=== PATIENT | male | born 1970 | race Caucasian/White ===

== ENCOUNTER 2019-03-31 06:48 | Inpatient (IN) | payer OTHER, BC ==
[2019-03-29 17:37] VITALS: BMI 29.2
[2019-03-31] MEDS ORDERED: MIDAZOLAM HCL 2 MG/2 ML SINGLE DOSE VIAL ONE ×3 (07:21→10:39)
[2019-03-31] MEDS ORDERED: ROCURONIUM BROMIDE 50 MG/5 ML VIAL ONE (07:21)
[2019-03-31] MEDS ORDERED: SUCCINYLCHOLINE CHLORIDE 200 MG/10 ML VIAL ONE (07:21)
[2019-03-31] MEDS ORDERED: PROPOFOL 20 ML ONE ×37 (07:21→14:07)
[2019-03-31] MEDS ORDERED: fentaNYL CITRATE 250 MCG/5 ML VIAL ONE ×2 (07:21→10:07)
[2019-03-31] MEDS ORDERED: BENZOIN/ALOE VERA/STORAX/TOLU 58 ML BOTTLE ONE (07:25)
[2019-03-31] MEDS ORDERED: HEPARIN NA (PORCINE) 5,000 UNITS/ML 1ML VIAL ONE (07:25)
[2019-03-31] MEDS ORDERED: THROMBIN (RECOMBINANT) 5,000 UNIT VIAL TP ONE (07:25)
[2019-03-31] MEDS ORDERED: DESFLURANE GAS 240 ML BOTTLE IH ONE (07:41)
[2019-03-31] MEDS ORDERED: CEFAZOLIN 2 GM in DEXTROSE 5%-WATER - 50 ML IVPB ONE (07:45)
[2019-03-31] MEDS ORDERED: TRANEXAMIC ACID 1000 MG/10 ML VIAL IVPUSH ONE (07:45)
[2019-03-31] MEDS ORDERED: VANCOMYCIN 1,000 MG in DEXTROSE 5%-WATER - 250 ML IVPB ONE (07:45)
[2019-03-31] MEDS ORDERED: DEXAMETHASONE SOD PHOSPHATE 4 MG/1 ML VIAL ONE (09:29)
[2019-03-31] MEDS ORDERED: VANCOMYCIN 1,000 MG VIAL (RESTRICTED TO ID ONLY) ONE (09:29)
[2019-03-31] MEDS ORDERED: ONDANSETRON 4 MG/2 ML VIAL ONE (09:29)
[2019-03-31] MEDS ORDERED: TRANEXAMIC ACID 1000 MG/10 ML VIAL ONE ×2 (09:29→13:39)
[2019-03-31] MEDS ORDERED: HYDROmorphone HCL/PF 1 MG/ML AMP ONE ×2 (12:25→13:55)
[2019-03-31] MEDS ORDERED: ceFAZolin SODIUM 1 GM VIAL ONE (13:27)
--- NOTE | 2019-03-31 15:06 | OP ---
Operative Note - Note: Operative Date: 03/31/19 Pre-Operative Diagnosis: 1. C3-C6 cervical spondylotic myelopathy. 2. C3-C7 cervical spondylotic radiculopathy. 3. Cervical deformity (kyphosis). 4. Multi -level segmental instability cervical spine. 5. Weakness, fall risk. SEVERITY OF ILLNESS: 4. Operation: 1. C4, C5 corpectomies. 2. C3, C6 partial corpectomies. 3. C3-4, C4 -C5, C5-C6 anterior cervical discectomy. 4. C3-C6 biomechanical device. 5. C3- C6 anterior arthrodesis. 6. C3-C6 anterior instrumentation. 7. Bone autograft. 8. Bone allograft. 9. Microsurgical dissection Implants: Choice Spine [place] Cage: 50mm. Precision Spine Slimplicity Plate: 58mm. 4 x screws (12mm) Post-Operative Diagnosis: Same as Pre-op Surgeon: Hernandez Connor Threshing Department Supervisor: Trerence Connor Anesthesiologist/ELECTRIC DOLLY OPERATOR: Eddie Kaur Anesthesia: General Specimens Removed: C3-C4, C4-C5, C5-C6 discs Estimated Blood Loss (mls): 400 Drains & Tubes with Location: 1 x deep HemoVac Blood Volume Replaced (mls): 125 (Cell Saver) Fluid Volume Replaced (mls): 3,200 (Crystalloid) Operative Report Dictated: Yes
[2019-03-31] MEDS ORDERED: ALPRAZolam 1 MG TABLET PO PRN (15:07)
--- NOTE | 2019-03-31 15:07 | PN ---
Progress Note (short form) - Note Progress Note: 48M s/p C3-C6 anterior cervical decompression and instrumented fusion POD #0. -Airway observation: In case of emergency, remove anterior cervical spine dressing and pull out running suture; ok to cut suture if needed to decompress hematoma. -Maintain head of bed 45-60 degrees. -Pain medication: per anaesthesia team; oral meds (oxycodone preferred), no DUST CONTROL ENGINEER ; NO NSAID's. -DVT PPx: -Mechanical only: DINESH's, SCD's. -Post-op Ancef x 3 doses. -f/u AM labs. -Incentive spirometry. -PT/OT/Rehab, OOB. -WBAT B/L LE. -PWB B/L UE: 5lbs. -d/c Mccarthy catheter in PACU; f/u TOV (8 hours max). -Keep dressing clean & dry. -No heavy lifting (>5 lbs), bending or twisting x 6 months post op. -Start with soft diet; advance diet as tolerated. -B/L UE & LE NV checks. -Care per ICU & primary medical hospitalist teams. -Discharge planning: f/u [facility] [place] office 04/08/2019; call for appointment; . Hernandez Connor MD (Orthopaedic Surgery).
[2019-03-31] MEDS ORDERED: oxyCODONE HCL 5 MG TABLET PO PRN (15:08)
[2019-03-31] MEDS ORDERED: ONDANSETRON 4 MG/2 ML VIAL IVPUSH PRN (15:08)
[2019-03-31] MEDS ORDERED: NALOXONE HCL 0.4 MG/ML VIAL ONE (15:35)
[2019-03-31] MEDS: LACTATED RINGERS SOLUTION 1,000 ML IV SCH (17:00)
[2019-03-31] MEDS: ceFAZolin 2 GRAM PREMIX BAG IVPB SCH (18:36)
--- NOTE | 2019-03-31 19:32 | HP ---
Admitting History and Physical - Admission Chief Complaint: cervical pain. denies chest pain, nausea, vomiting, diarrhea History Source: Patient Limitations to Obtaining History: No Limitations - Past Medical History Cardiovascular: Yes: HTN, Hyperlipdemia - Smoking History Smoking history: Never smoked Have you smoked in the past 12 months: No - Alcohol/Substance Use Hx Alcohol Use: Yes (OCCASIONALLY) Home Medications - Allergies Allergies/Adverse Reactions: Allergies Allergy/AdvReac Type Severity Reaction Status Date / Time hydrocodone [From Vicodin] AdvReac Severe BAD Verified 03/29/19 17:04 ABDOMINAL PAIN - Home Medications Home Medications: Ambulatory Orders Alprazolam 1 mg PO QID PRN 03/29/19 Amlodipine Besylate [Norvasc -] 5 mg PO DAILY 03/29/19 Atorvastatin Ca [Lipitor] 20 mg PO DAILY 03/29/19 Cyclobenzaprine HCl 10 mg PO DAILY PRN 03/29/19 Fenofibrate Nanocrystallized [Fenofibrate] 145 mg PO DAILY 03/29/19 Lisinopril 10 mg PO DAILY 03/29/19 Metoprolol Succinate 50 mg PO DAILY 03/29/19 Tramadol HCl 50 mg PO BID PRN 03/29/19 Review of Systems - Review of Systems Constitutional: reports: No Symptoms Eyes: reports: No Symptoms HENT: reports: No Symptoms Neck: reports: Decreased ROM, Pain on Movement, Stiffness Respiratory: reports: No Symptoms Gastrointestinal: reports: No Symptoms Genitourinary: reports: No Symptoms Musculoskeletal: reports: No Symptoms Integumentary: reports: No Symptoms Neurological: reports: No Symptoms Endocrine: reports: No Symptoms Hematology/Lymphatic: reports: No Symptoms Psychiatric: reports: No Symptoms Pain Intensity: 8 Physical Examination Vital Signs: Vital Signs Temperature 97.9 F 03/31/19 17:30 Pulse Rate 97 H 03/31/19 17:30 Respiratory Rate 16 03/31/19 17:30 Blood Pressure 132/88 03/31/19 17:30 O2 Sat by Pulse Oximetry (%) 93 L 03/31/19 17:49 Constitutional: Yes: No Distress, Anxious Eyes: Yes: WNL HENT: Yes: WNL Neck: Yes: Decreased ROM, Rigid, Tenderness Cardiovascular: Yes: WNL Respiratory: Yes: WNL Gastrointestinal: Yes: WNL Renal/: Yes: WNL Musculoskeletal: Yes: WNL Extremities: Yes: WNL Edema: No Peripheral Pulses WNL: Yes Integumentary: Yes: WNL Wound/Incision: Yes: Clean/Dry, Well Approximated Neurological: Yes: WNL ...Motor Strength: WNL Psychiatric: Yes: WNL Assessment/Plan 48M s/p C3-C6 anterior cervical decompression and instrumented fusion POD #0. cont pain management. incentive spirometry. side effects of narcotics reviewed with pt on stool softeners to prevent opioid induced constipation -cont xanax for anxiety -ID: covered empirically with Ancef -HTN: on toprol XL, lisinopril, amlodipine -advance diet as tolerated -AM labs -PT/OT/OOB as tolerated. -assessment and plan discussed with pt and family at bedside meds reviewed possible DC home tomorrow if stable
[2019-03-31] MEDS ORDERED: DEXAMETHASONE SOD PHOSPHATE 10 MG/1 ML VIAL IVPUSH ONE (23:00)
[2019-04-01] MEDS: ceFAZolin 2 GRAM PREMIX BAG IVPB SCH ×2 (00:52→06:11)
[2019-04-01] MEDS: oxyCODONE HCL 5 MG TABLET PO PRN ×4 (07:43→18:40)
--- NOTE | 2019-04-01 08:54 | OP ---
DATE OF OPERATION: 03/31/2019 PRE-OPERATIVE DIAGNOSIS: 1. C3-C4, C4-C5, C5-C6 intervertebral disk disorder with associated spondylotic: A. Myelopathy. B. Radiculopathy. 2. Cervical spinal stenosis with neurogenic claudication. 3. Cervical kyphosis/deformity. 4. Axial segmental instability cervical spine. 5. Progressive neurological decline with gait imbalance/disorder, weakness, and fall risk. POST-OPERATIVE DIAGNOSIS: 1. C3-C4, C4-C5, C5-C6 intervertebral disk disorder with associated spondylotic: A. Myelopathy. B. Radiculopathy. 2. Cervical spinal stenosis with neurogenic claudication. 3. Cervical kyphosis/deformity. 4. Axial segmental instability cervical spine. 5. Progressive neurological decline with gait imbalance/disorder, weakness, and fall risk. SURGICAL PROCEDURE: 1. C3-C4, C4-C5, C5-C6 discectomies and arthrodesis (94305, 16300 x 2). 2. C4, C5 corpectomies. (47432, 85217). 3. C3, C6 partial corpectomies (52381 x 2). 3. Insertion of biomechanical device C3-C6 (78142). 4. C3-C6 anterior instrumentation (63776). 5. Bone autograft (07677). 6. Bone allograft (45323). 7. Microsurgical dissection (24561). FINDINGS: Significant expansion of theca observed after C3-C6 decompression. IMPLANTS: 1. Cage: Choice Spine [place] [id number]. 2. Plate: Precision Spine Simplicity 58mm. 3. Screws: 4 x 12x4mm. SURGEON: Hernandez Connor MD PHOTOFLASH POWDER MIXER: Terrence Connor MD ANESTHESIOLOGIST: Eddie Kaur MD ANESTHESIA: General endotracheal tube anesthesia. POSITION: Supine. INCISION: Right oblique anterior. ESTIMATED BLOOD LOSS: 400cc. TRANSFUSIONS: 125cc Cell Saver. INTRAVENOUS FLUID: 3.2L crystalloid. SPECIMENS: C3-C4, C4-5, C5-C6 disc. DRAINS: None. COMPLICATIONS: None. URINE OUTPUT: See anesthesia record. BACTERIOLOGY: None. CLOSURE: 2-0 Vicryl and 3-0 Biosyn absorbable suture. INDICATIONS: The patient was indicated for an anterior cervical decompression and instrumented fusion to prevent the progression of already worsening neurological decline. The patient was identified in the holding area by his armband. A long discussion was held with the patient in the presence of his family regarding the risks, benefits and alternatives of the above-named procedure. The risks include, but are not limited to: pain, bleeding, infection, damage to surrounding structures (including nerves, blood vessels, skin, ligaments, tendons, and bone), dysphagia, dysphonia, nerve palsy, weakness, limp, wound complications, pseudarthrosis, failure of fusion, failure of hardware/implants/ reduction, need for further surgery, blood clots, myocardial infarction, pulmonary embolism, cerebrovascular event, anesthesia complications, neurological injury, loss of function, and . Benefits as mentioned above. Alternatives include no surgery. All questions were answered. The patient and his family understood and agreed to the procedure. Informed consent was obtained, witnessed and verified by hospital nursing staff. The patients anterior neck was marked. The patient was then seen by the anesthesia and nursing staff and then taken to the operating room. PROCEDURE: The patient was brought into the operating room and transferred to the OR table , and secured with a safety strap. Consent and the operative site were again verified with the patient, the nursing team, the surgical team, and the anesthesiology team. Anesthesia, IV antibiotics, and TXA were then administered without complication. A time out was done, led by me the attending surgeon. An indwelling Mccarthy catheter was successfully inserted by the nursing team. The intra-operative neural monitoring team then set up for the case. Pre-positional baseline SSEP, MEP, & EEG readings were recorded. The patient was positioned in the supine position with arms tucked and placed under gentle traction using tape over her shoulders. All bony prominences were very well padded. A bump was placed beneath the scapulae to facilitate extension of the patients neck. A C-arm fluoroscopy unit was positioned perpendicularly to the table and maintained at the level of the head, except when needed. The intended surgical level was confirmed using fluoroscopy, and a deep neck crease in the lines of Merle at this level was targeted for incision. Intra-operative neural monitoring revealed no change between pre-positional and post-positional readings. The operative site was then prepped and in the standard sterile fashion using betadine prep and scrub, wiped off with alcohol, Duraprep applied, and then free draped. Pre-operative imaging was available for intra-operative evaluation. Time-out was again done, and the case began. A standard, Gerber-Soriano approach to the cervical spine was utilized. An oblique anterior incision was made on the right side of the patients neck in the lines of Merle in standard fashion. Dissection was carried through the investing layer of fascia and finger palpation was used to create a plane lateral to the strap muscles between the carotid sheath and the viscera. Next, the esophagus and trachea were visualized as was the carotid sheath. Hand-held retractors were used to retract these structures safely out of the way, allowing direct access to the anterior cervical spine. The prevertebral fascia overlying the anterior cervical spine was then split using peanut swabs. An 18- gauge spinal needle was bent and used to localize the indicated surgical level under fluoroscopy. Next, the medial borders of the Longus Coli musculature were gently released over the anterolateral borders of the vertebral bodies and disc spaces using monopolar electrocautery. A self-retaining retractor system was used with the teeth of the blades retracting the belly of the longus coli muscles, and with the retractors themselves safely retracting the carotid sheath laterally and viscera medially. One 12mm Nuevo pin was then placed into the center of the vertebral bodies of C4 and C6. The Nuevo pin placement was confirmed via fluorscopy. A Nuevo pin distractor system was applied with no distraction at this stage. Additionally, the distractor barrels served as superior and inferior soft tissue retractors. The microscope was then introduced. Using monopolar electrocautery, the annulus of the C4-C5 and C5-C6 discs was incised. The disc was morselized using a curette and excised using a pituitary rongeur. A Matchstick edna-tipped sergei was then used to cut a trough onto the left- and right-hand side of the C5 vertebral body just medial to the waist of the vertebral body, and thus medial to the plane of the vertebral arteries. The C4- C5 and C5-C6 disc spaces were then also burred out. The remaining bone was delivered with a Leksell rongeur. All of this bone was saved for grafting purposes as an autologous graft. A 4mm ball-shaped, edna-tipped sergei was utilized to complete the debulking of the residual bone. An undercutting partial corpectomy was performed at C6 using a sergei and Kerrison rongeurs. This was to ensure complete decompression distally. The Nuevo pin was removed from the C6 vertebral body and replaced in the middle of the C3 vertebral body. Using monopolar electrocautery, the annulus of the C3-C4 disc was incised. The disc was morselized using a curette and excised using a pituitary rongeur. A Matchstick edna-tipped sergei was then used to cut a trough onto the left- and right-hand side of the C4 vertebral body just medial to the waist of the vertebral body, and thus medial to the plane of the vertebral arteries. The C3- C4 disc space was then also burred out. The remaining bone was delivered with a Leksell rongeur. All of this bone was saved for grafting purposes as an autologous graft. A 4mm ball-shaped, edna-tipped sergei was utilized to complete the debulking of the residual bone. An undercutting partial corpectomy was performed at C3 using a sergei and Kerrison rongeurs. A small Logan type elevator was utilized to ensure that all PLL complex was free from adhesion to the theca from C3-C6. There was no evidence of OPLL. The visible posterior longitudinal ligament was released and excised utilizing Kerrison rongeur upcuts. This ensured complete decompression proximally and distally from C3-C6. Immediately, the theca expanded anteriorly into the decompressed space. Our decompression of the cervical spine was successfully achieved. The anesthesiologist then performed a Valsalva maneuver up to 40mmHg. There was no evidence of dural defect, cerebrospinal fluid leak, or uncontrollable bleeding. The C3 Nuevo pin was removed. The holes from the Nuevo pins at C3 and C6 were plugged with bone wax. Next, a Choice Spine [place] cage measure to fit the space created. The cage was filled with autologous bone derived from the corpectomies, along with demineralized bone matrix putty allograft. The cage was then gently tapped into position. This completing the anterior arthrodesis. The patients head was gently flexed under live fluoroscopy to allow the teeth of the cage to engage the adjacent bone and ensure compression fixation of the cage itself. The was no evidence of mal-position or instability of the cage with flexion and extension of the cervical spine during live fluoroscopy. A Precision Spine Slimplicity plate was sized and 12mm screws were used to provide solid fixation of the plate to the anterior C3 and C6 vertebral bodies. The screws were then locked using the plate-screw locking mechanism. Fluoroscopic images in the AP and lateral plane showed implants to be in good position and with good overall alignment of the cervical spine. Throughout the case, copious irrigation was performed, and hemostasis was assured. A deep 1/8 HemoVac drain was placed. The wound was closed primarily using 2-0 Vicryl and 3-0 Biosyn sutures. A sterile compressive dressing was applied. Sponge and needle counts were correct at the end of the case, and I, the attending surgeon, was present and scrubbed throughout the case. The patient was then extubated by the anesthesia staff without incident or complications and was then transferred to the recovery room in stable condition having tolerated the procedure well. OVERALL COMMENTS: Overall the case went well. Intra-operative neural monitoring readings improved from baseline at the end of the case. MD ARTUR Ivory/[id number] MTDD
[2019-04-01] MEDS: ATORVASTATIN CA 20 MG TABLET (FP) PO SCH (09:29)
[2019-04-01] MEDS: amLODIPine BESYLATE 5 MG TABLET (FP) PO SCH (09:29)
[2019-04-01] MEDS: LISINOPRIL 10 MG TABLET (FP) PO SCH (09:29)
[2019-04-01] MEDS: FENOFIBRIC ACID 135 MG CAP PO SCH (09:29)
--- NOTE | 2019-04-01 09:30 | PN ---
Progress Note, Physician Chief Complaint: neck pain - Current Medication List Current Medications: Active Medications Alprazolam (Xanax) 1 mg PO QID PRN PRN Reason: ANXIETY Amlodipine Besylate (Norvasc -) 5 mg PO DAILY [facility] Atorvastatin Calcium (Lipitor -) 20 mg PO DAILY [facility] Fenofibric Acid (Trilipix -) 135 mg PO DAILY [facility] Lactated Ringer's (Lactated Ringers Solution) 1,000 mls @ 125 mls/hr IV ASDIR BEVERLY Last Admin: 03/31/19 17:00 Dose: 0 mls Lisinopril (Prinivil) 10 mg PO DAILY [facility] Metoprolol Succinate (Toprol Xl -) 50 mg PO DAILY [facility] Ondansetron HCl (Zofran Injection) 4 mg IVPUSH Q6H PRN PRN Reason: NAUSEA AND/OR VOMITING Oxycodone HCl (Roxicodone -) 5 mg PO Q4H PRN PRN Reason: PAIN LEVEL 1-5 Last Admin: 04/01/19 00:58 Dose: 5 mg Oxycodone HCl (Roxicodone -) 10 mg PO Q4H PRN PRN Reason: PAIN LEVEL 6-10 Last Admin: 04/01/19 07:43 Dose: 10 mg - Objective Vital Signs: Vital Signs Temperature 98.2 F 04/01/19 05:00 Pulse Rate 101 H 04/01/19 05:00 Respiratory Rate 18 04/01/19 05:00 Blood Pressure 142/81 04/01/19 05:00 O2 Sat by Pulse Oximetry (%) 94 L 04/01/19 06:24 Constitutional: Yes: Well Nourished, No Distress Eyes: Yes: WNL HENT: Yes: WNL Neck: Yes: Tenderness Cardiovascular: Yes: WNL Respiratory: Yes: WNL Gastrointestinal: Yes: WNL Genitourinary: Yes: WNL Musculoskeletal: Yes: WNL Extremities: Yes: WNL Edema: No Peripheral Pulses WNL: Yes Integumentary: Yes: WNL Wound/Incision: Yes: Clean/Dry, Well Approximated Neurological: Yes: WNL ...Motor Strength: WNL Psychiatric: Yes: WNL Assessment/Plan 48M s/p C3-C6 anterior cervical decompression and instrumented fusion POD #1. cont pain management. incentive spirometry. side effects of narcotics reviewed with pt on stool softeners to prevent opioid induced constipation -cont xanax for anxiety -ID: covered empirically with Ancef -HTN: on toprol XL, lisinopril, amlodipine. uncontrolled. as per pt his will bring full list of meds from home -advance diet as tolerated -AM labs ordered -PT/OT/OOB as tolerated. -assessment and plan discussed with pt and family at bedside meds reviewed possible DC home tomorrow if stable
[2019-04-01] MEDS ORDERED: PATIENT'S OWN MEDICATION (NON-FORMULARY) (Fenofibrate Nanocrystallized [Fenofibrate] 145 M PO SCH (10:00)
--- NOTE | 2019-04-01 11:07 | SPA.POSTOP ---
- POST-OP NOTE POD #1 48yo male diagnosed w/ C3-C6 cervical spondylotic myelopathy. C3-C7 cervical spondylotic radiculopathy. Cervical deformity (kyphosis). Multi-level segmental instability cervical spine. Prior too surgical procedure patient had complaints of cervical pain with LUE radiculopathy and parasthesia. Now s/p C4/5 corpectomies; C3, C6 partial corpectomies; C3-4, C4-C5, C5-C6 ACDF ; C3-C6 biomechanical device. C3-C6 anterior arthrodesis. C3-C6 anterior instrumentation. Bone autograft & allograft. Patient said that the numbness and tingling to his left hand almost resolved. No acute events since surgical procedure per RN notes. Patient resting comfortably. C/o incisional tenderness. Adequate pain control via prn meds. Using his incentive spirometer as directed. Wearing his cervical collar. OOB and ambulating with PT. Tolerating liquids with mild dysphagia. Denies n/v/f/c, CP or SOB. Last Vital Signs Temp Pulse Resp BP Pulse Ox 98.2 F 101 H 18 142/81 94 L 07/18/19 05:00 07/18/19 05:00 07/18/19 05:00 07/18/19 05:00 18/19 06:24 PE General: NAD Neck: Soft. Supple. Dressing c/d/i. No hematoma. Drain 20mL since surgery Pulm: CTA bilat in all shen Cor: RRR Abd: Soft. NT. ND : pruitt to gravity > 30 mL/hr (clear) LE: Soft, non-tender bilat. SCD's bilat. Problem List - Problems (1) Cervical myelopathy with cervical radiculopathy Assessment/Plan: POD #1 s/p C3-C6 anterior cervical decompression and instrumented fusion Airway observation: In case of emergency (should an airway compromising hematoma develop), remove anterior cervical spine dressing and pull out running suture; ok to cut suture if needed. --> Notify Dr. Ge[facility] PERLA -Maintain head of bed 45-60 degrees. -Pain medication: per anaesthesia team; oral meds (oxycodone preferred), no SEARCH ENGINE OPTIMIZATION CONSULTANT ; NO NSAID's. -DVT PPx: -Mechanical only: DINESH's, SCD's. -f/u AM labs. -Incentive spirometry. -PT/OT/Rehab, OOB. -WBAT B/L LE. -PWB B/L UE: 5lbs. -Keep dressing clean & dry. -No heavy lifting (>5 lbs), bending or twisting x 6 months post op. -Soft diet; advance diet as tolerated. -B/L UE & LE NV checks. Above discussed with Dr. Hernandez Connor and agrees. Code(s): M47.12 - OTHER SPONDYLOSIS WITH MYELOPATHY, CERVICAL REGION
[2019-04-02] MEDS: oxyCODONE HCL 5 MG TABLET PO PRN ×3 (03:00→10:41)
[2019-04-02] MEDS: LACTATED RINGERS SOLUTION 1,000 ML IV SCH (07:26)
[2019-04-02 07:29] LABS: HEMATOCRIT 43.3 % (35.4-49); HEMOGLOBIN 14.5 GM/dl (11.7-16.9); MCHC 33.5 g/dl (32.0-35.9); MEAN CELL VOLUME 83.7 fl (80-96); MEAN PLT VOLUME 8.1 fl (7.5-11.1); PLATELET COUNT 262 K/MM3 (134-434); RBC 5.17 M/mm3 (4.00-5.60); RDW 12.7 % (11.9-15.9); WHITE BLOOD COUNT 19.3 K/mm3 (4.0-10.8)
[2019-04-02 08:07] LABS: CALCIUM 9.3 mg/dl (8.5-10)
[2019-04-02 09:11] VITALS: BP 140/93; PULSE 83; TEMP 98.7
[2019-04-02] MEDS: LISINOPRIL 10 MG TABLET (FP) PO SCH (09:11)
[2019-04-02] MEDS: FENOFIBRIC ACID 135 MG CAP PO SCH (09:11)
[2019-04-02] MEDS: amLODIPine BESYLATE 5 MG TABLET (FP) PO SCH (09:11)
[2019-04-02] MEDS: ATORVASTATIN CA 20 MG TABLET (FP) PO SCH (09:11)
--- NOTE | 2019-04-02 10:30 | DS ---
Physical Examination Vital Signs: Vital Signs Temperature 98.7 F 04/02/19 09:08 Pulse Rate 83 04/02/19 09:08 Respiratory Rate 19 04/02/19 09:08 Blood Pressure 140/93 04/02/19 09:08 O2 Sat by Pulse Oximetry (%) 93 L 04/02/19 09:08 Labs: CBC, BMP 04/02/19 06:57 04/02/19 06:57 Discharge Summary Reason For Visit: CERVICAL DISC DISORDER Current Active Problems Cervical myelopathy with cervical radiculopathy (Acute) Hospital Course: 48M s/p C3-C6 anterior cervical decompression and instrumented fusion POD #2 cont pain management. incentive spirometry. side effects of narcotics reviewed with pt on stool softeners to prevent opioid induced constipation -cont xanax for anxiety -ID: covered empirically with Ancef -HTN: on toprol XL, lisinopril, amlodipine. uncontrolled. needs to floolow up with PCP. as per pt BP has been chronically uncontrolled. -follow up with Dr Connor Condition: Good - Instructions Disposition: HOME - Home Medications Comprehensive Discharge Medication List: Ambulatory Orders Alprazolam 1 mg PO QID PRN 03/29/19 Amlodipine Besylate [Norvasc -] 5 mg PO DAILY 03/29/19 Atorvastatin Ca [Lipitor] 20 mg PO DAILY 03/29/19 Cyclobenzaprine HCl 10 mg PO DAILY PRN 03/29/19 Fenofibrate Nanocrystallized [Fenofibrate] 145 mg PO DAILY 03/29/19 Lisinopril 10 mg PO DAILY 03/29/19 Metoprolol Succinate 50 mg PO DAILY 03/29/19 Tramadol HCl 50 mg PO BID PRN 03/29/19
[2019-04-02 10:33] LABS: PLATELET ESTIMATE ADEQUATE
--- NOTE | 2019-04-02 12:01 | PN ---
Progress Note (short form) - Note Progress Note: 48M s/p C3-C6 anterior cervical decompression and instrumented fusion POD #2. Pain well controlled. No acute events overnight. Pt. reports post-operative resolution of bilateral upper & lower extremity radiculopathy (pain, numbness, and tingling). Pt. denies overnight history of headaches, chest pain, shortness of breath, nausea, vomiting, chills, & sweats. (+) Voiding; (+) Flatus; (-) BM. (+) Dysphagia (tolerating normal diet); (-) Dysphonia. All labs and vitals reviewed. PE: AAO x 3, NAD. C-Spine: Dressing C/D/I. Drain removed on rounds. B/L UE & LE M: Intact, at least 3/5. B/L UE & LE S: C5-T1, L2-S1 2/2. 48M s/p C3-C6 anterior cervical decompression and instrumented fusion POD #2. -Pain medication: NO NSAID's. -Maintain head of bed 45-60 degrees. -DVT PPx: -Mechanical only: DINESH's, SCD's. -f/u AM labs. -Incentive spirometry. -PT/OT/Rehab, OOB. -PWB B/L UE: <5lbs. -WBAT B/L LE. -Hard c-collar at all times. -Keep dressing clean & dry. -No heavy lifting (>5 lbs), bending or twisting x 6 months post op. -Advance diet as tolerated. -B/L UE & LE NV checks. -Care per medical hospitalist: Dr. Rizo. -Discharge planning: f/u [facility] [place] office Friday04/08/2019; call for appointment; . Hernandez Connor MD (Orthopaedic Surgery).
--- NOTE | 2019-04-05 16:19 | PATH ---
Surgical Pathology Report Patient Name: OMARI BILLY Med. Rec. #: [id number] /Age/Gender: 1970 (Age: 48) / M Account: [id number] Location: [facility] MED-SURG Taken: 03/31/2019 Received: 03/31/2019 Reported: 04/05/2019 Physicians: Hernandez Connor M.D. Specimen(s) Received CERVICAL DISC C3-C6 Clinical History Cervical stenosis with myelopathy Final Diagnosis CERVICAL DISC, C3-C6, EXCISION: CARTILAGE WITH DEGENERATIVE CHANGES. Electronically Signed Zoe Juarez M.D. Gross Description Received in formalin labeled "C3-C6 cervical disc," is a 4.0 x 2.3 x 0.4 cm aggregate of young fragments of fibrocartilaginous tissue. A union representative portion is submitted in one cassette. /04/01/2019 [facility]04/01/2019
== END 2019-04-02 11:21 | disposition home or self-care (01) | DRG 472 ==
LOC: FM/S 06:48
PROVIDERS: ADMIT Orthopaedic Surgery Adult Reconstructive Orthopaedic Surgery; ATTEND Orthopaedic Surgery Adult Reconstructive Orthopaedic Surgery
PROC: 0RG20K0 Fusion of 2 or more Cervical Vertebral Joints with Nonautologous Tissue Substitute, Anterior Approach, Anterior Column, Open Approach (ICD-10-PCS; 2019-03-31)
PROC: 0RG2070 Fusion of 2 or more Cervical Vertebral Joints with Autologous Tissue Substitute, Anterior Approach, Anterior Column, Open Approach (ICD-10-PCS; 2019-03-31)
PROC: 0RB30ZZ Excision of Cervical Vertebral Disc, Open Approach (ICD-10-PCS; 2019-03-31)
PROC: 00NW0ZZ Release Cervical Spinal Cord, Open Approach (ICD-10-PCS; 2019-03-31)
PROC: 4A11X4G Monitoring of Peripheral Nervous Electrical Activity, Intraoperative, External Approach (ICD-10-PCS; 2019-03-31)
PROC: B01BZZZ Fluoroscopy of Spinal Cord (ICD-10-PCS; 2019-03-31)
PROC: 0RG20A0 Fusion of 2 or more Cervical Vertebral Joints with Interbody Fusion Device, Anterior Approach, Anterior Column, Open Approach (ICD-10-PCS; principal; 2019-03-31 10:03)
DX: M48.02 Spinal stenosis, cervical region (principal); M47.12 Other spondylosis with myelopathy, cervical region; M47.22 Other spondylosis with radiculopathy, cervical region; M40.292 Other kyphosis, cervical region; M43.8X2 Other specified deforming dorsopathies, cervical region; M53.2X2 Spinal instabilities, cervical region; I10 Essential (primary) hypertension; E78.5 Hyperlipidemia, unspecified
CPT/HCPCS: 36415; 72050-TC-FY; 80048; 85025; 88304-TC; 94760; 97116-GP; 97162-GP; J1100; J1644

== ENCOUNTER 2019-04-03 08:31 | Inpatient (IN) | payer OTHER, BC ==
--- NOTE | 2019-04-03 08:50 | PDOC ---
History of Present Illness <Ivonne Dong - Last Filed: 04/03/19 12:22> - History of Present Illness Initial Comments: 04/03/19 08:48 48 yo M with h/o HLD, HTN, cervical myelopathy with radiculoipoathy s/p C3-C6 anterior decompression and instrumented fusion (03/31/19) who p/w dysphagia. Patient reports left sided internal odynophagia beginning this AM. Patient unable to tolerate PO fluid and solid intake. Reports violent, productive coughing, with clear "phlegm,"PO intake. Cervical fusion/decompression performed Dr. [facility] Connor (03/31/19). Patient endorsed by Dr. Hernandez Connor prior to arrival. Absent post operative complications. Patient with all drains removed, neurologically intact, and given Dexamethasone pre and post op. Pt. takes percocet with absent relief. F/w pain management x 3-4 years. Patient denies LESLIE, vision change, palpitations, wheezing, orthopena, PND, leg swelling/pain, N/V, F,C, CP, SOB, urinary complaints, hematuria, BPR, abdominal pain, diarrhea, constipation, lightheadedness, weakness, sensory changes. PMHx: as noted above ROS: as noted SHx: Denies Etoh, IVDA, tobacco use Allergies: NKDA <Torrey Valdes - Last Filed: 04/03/19 12:33> - General Chief Complaint: Pain Stated Complaint: SENT BY PCP Time Seen by Provider: 04/03/19 08:39 Past History <Ivonne Dong - Last Filed: 04/03/19 12:22> - Past Medical History Anemia: No Asthma: No Cancer: No Cardiac Disorders: No CVA: No COPD: No CHF: No Dementia: No Diabetes: No GI Disorders: Yes (GERD) Disorders: No HTN: Yes Hypercholesterolemia: Yes Liver Disease: No Seizures: No Thyroid Disease: No - Surgical History Abdominal Surgery: No Appendectomy: No Cardiac Surgery: No Cholecystectomy: No Lung Surgery: No Neurologic Surgery: No Orthopedic Surgery: Yes (LEFT ELBOW REPAIRED LIGAMENT, LEFT ANKLE BONE FRAGMENTS RE-) - Suicide/Smoking/Psychosocial Hx Smoking History: Never smoked Have you smoked in the past 12 months: No Hx Alcohol Use: Yes (OCCASIONALLY) Drug/Substance Use Hx: No Substance Use Type: Alcohol Hx Substance Use Treatment: No <Jose Valdesson - Last Filed: 04/03/19 12:33> - Past Medical History Allergies/Adverse Reactions: Allergies Allergy/AdvReac Type Severity Reaction Status Date / Time hydrocodone [From Vicodin] AdvReac Severe BAD Verified 04/03/19 08:38 ABDOMINAL PAIN Home Medications: Ambulatory Orders Alprazolam 1 mg PO QID PRN 03/29/19 Amlodipine Besylate [Norvasc -] 5 mg PO DAILY 03/29/19 Atorvastatin Ca [Lipitor] 20 mg PO DAILY 03/29/19 Cyclobenzaprine HCl 10 mg PO DAILY PRN 03/29/19 Fenofibrate Nanocrystallized [Fenofibrate] 145 mg PO DAILY 03/29/19 Lisinopril 10 mg PO DAILY 03/29/19 Metoprolol Succinate 50 mg PO DAILY 03/29/19 Oxycodone HCl/Acetaminophen [Percocet 5-325 mg Tablet] 1 tab PO Q6H #20 tablet MDD 4 04/02/19 Review of Systems - Review of Systems Comments:: 04/03/19 08:50 GENERAL/CONSTITUTIONAL: No fever or chills. No weakness. HEAD, EYES, EARS, NOSE AND THROAT: + odynophagia, dysphagia. No change in vision. No ear pain or discharge. CARDIOVASCULAR: No chest pain or shortness of breath RESPIRATORY: No cough, wheezing, or hemoptysis. GASTROINTESTINAL: No nausea, vomiting, diarrhea or constipation. GENITOURINARY: No dysuria, frequency, or change in urination. MUSCULOSKELETAL: No joint or muscle swelling or pain. No neck or back pain. SKIN: No rash NEUROLOGIC: No headache, vertigo, loss of consciousness, or change in strength/ sensation. ENDOCRINE: No increased thirst. No abnormal weight change HEMATOLOGIC/LYMPHATIC: No anemia, easy bleeding, or history of blood clots. ALLERGIC/IMMUNOLOGIC: No hives or skin allergy. <Torrey Valdes - Last Filed: 04/03/19 12:33> *Physical Exam - Vital Signs Last Vital Signs Temp Pulse Resp BP Pulse Ox 98.3 F 100 H 18 111/86 92 L 04/03/19 08:38 04/03/19 08:38 04/03/19 08:34 04/03/19 08:38 04/03/19 08:38 <Ivonne Dong - Last Filed: 04/03/19 12:22> - Vital Signs Last Vital Signs Temp Pulse Resp BP Pulse Ox 98 F 110 H 18 121/91 95 04/03/19 08:34 04/03/19 08:34 04/03/19 08:34 04/03/19 08:34 04/03/19 08:34 - Physical Exam Comments: 04/03/19 08:50 GENERAL: Awake, alert, and fully oriented, in no acute distress HEAD: No signs of trauma, normocephalic, atraumatic EYES: PERRLA, EOMI, sclera anicteric, conjunctiva clear ENT: + Hard cervical collar in place. + R sided anterior cervical incision site c/d/i steri strips in place, with absent fluctuance, drainage or discharge. Auricles normal inspection, hearing grossly normal, nares patent, oropharynx clear without exudates. Moist mucosa NECK: Normal ROM, supple, no lymphadenopathy, JVD, or masses LUNGS: No distress, speaks full sentences, clear to auscultation bilaterally HEART: Regular rate and rhythm, normal S1 and S2, no murmurs, rubs or gallops, peripheral pulses normal and equal bilaterally. ABDOMEN: Soft, nontender, normoactive bowel sounds. No guarding, no rebound. No masses EXTREMITIES : Normal inspection, Normal range of motion, no edema. No clubbing or cyanosis. NEUROLOGICAL: Cranial nerves II through XII grossly intact. Normal speech, normal gait, no focal sensorimotor deficits SKIN: Warm, Dry, normal turgor, no rashes or lesions noted <Torrey Valdes - Last Filed: 04/03/19 12:33> ED Treatment Course - Medications Given in the ED: ED Medications Discontinued Medications Generic Name Dose Route Start Last Admin Trade Name Freq PRN Reason Stop Dose Admin Dexamethasone Sodium Phosphate 10 mg 04/03/19 09:02 04/03/19 09:17 Decadron Injection - IVPUSH 04/03/19 09:03 10 mg ONCE ONE Administration Diazepam 2.5 mg 04/03/19 09:33 04/03/19 09:57 Valium Injection - IVPUSH 04/03/19 09:34 Not Given ONCE ONE Sodium Chloride 1,000 mls @ 1,000 mls/hr 04/03/19 09:03 04/03/19 09:17 Normal Saline - IV 04/03/19 10:02 1,000 mls/hr ASDIR STA Administration Lorazepam 2 mg 04/03/19 09:54 04/03/19 09:57 Ativan Injection - IVPUSH 04/03/19 09:55 Not Given ONCE ONE Lorazepam 2.5 mg 04/03/19 09:54 04/03/19 09:55 Ativan Injection - IVPUSH 04/03/19 09:55 2.5 mg ONCE ONE Administration <Ivonne Dong - Last Filed: 04/03/19 12:22> Medical Decision Making - Medical Decision Making 04/03/19 08:50 48 yo M with h/o HLD, HTN, cervical myelopathy with radiculoipoathy s/p C3-C6 anterior decompression and instrumented fusion (03/31/19) who p/w dysphagia and odynophagia. HR 100, vitals otherwise wnl, AF, A&Ox3. Absent evidence resp. distress, or airway compromise. Absent mucsoal or palatal edema, uvula deviation , drooling, muffled/hoarse voice. Physical exam unremarkable, wound site right sided anterior cervical neck c/d/i, non fluctuant. CT C-spine to asses for esophageal compression/possible pretracheal fluid collection vs. abscess. Will consider transfer vs. transport dysphagia. Will consider obstructive or anatomic etiology vs. motor disorder. Provide analgesic control, reassess. Ed Course: 04/03/19 08:[address] Connor (0800 AM) recommends head elevation 30-45 degrees to allow potential donwhill pretracheal fluid drainage. Patient to remain in hard cervical c-collar. 5 mg Valium PRN for anxiety and muscle spasm relief. IVF for dehydration, decreased PO intake. 04/03/19 11:[address] Fernandez on phone, patient CT C-spine with unremarkable post-op changes. Soft tissue swelling, sift tissue gas nml post-op findings following surgery. suspects irritation of pharyngeal soft tissues, will not require admission. CT C-spine with Soft tissue swelling anterior to surgical hardware C3-C6, few foci of gas Pt. tolerating PO intake 04/03/19 12:32 Pt. admitted to [facility] endorsed by Dr. Dong <Torrey Valdes - Last Filed: 04/03/19 12:33> *DC/Admit/Observation/Transfer - Discharge Dispostion Decision to Admit order: Yes <Ivonne Dong - Last Filed: 04/03/19 12:22> - Discharge Dispostion Decision to Admit order: Yes <Torrey Valdes - Last Filed: 04/03/19 12:33> Diagnosis at time of Disposition: Odynophagia, Post-operative pain - Discharge Dispostion Condition at time of disposition: Stable - Patient Instructions Printed Discharge Instructions: DI for Neck Pain Additional Instructions: Please return to the emergency department with any new or worsening symptoms or concerns. Please follow up with your orthopedic surgeon and primary care physician within 72 hours.
[2019-04-03] MEDS ORDERED: DEXAMETHASONE SOD PHOSPHATE 10 MG/1 ML VIAL IVPUSH ONE (09:02)
[2019-04-03] MEDS ORDERED: SODIUM CHLORIDE 1,000 ML IV STA ×2 (09:03→11:38)
[2019-04-03] MEDS ORDERED: DEXAMETHASONE SOD PHOSPHATE 10 MG/1 ML VIAL ONE (09:09)
[2019-04-03] MEDS ORDERED: LORazepam 2 MG/ML SDV VIAL ONE (09:40)
[2019-04-03] MEDS: diazePAM CARPU-JECT 10 MG/2 ML DISP.SYRIN IVPUSH ONE ×2 (09:49→09:57)
--- NOTE | 2019-04-03 09:54 | PDOC ---
Attending Attestation - Resident Resident Name: Torrey Valdes - ED Attending Attestation I have performed the following: I have examined & evaluated the patient, The case was reviewed & discussed with the resident, I agree w/resident's findings & plan, Exceptions are as noted - HPI HPI: 04/03/19 09:49 48 yo male ho htn hld, chronic pain sp neck discectomy, fusion 03/31/19 post op day #3 here with intractable pain and inability to swallow. pt states he was given a prescription for percocet but has been unable to tolerate because of size of pill and pain. this am around 2 am he took percocet crushed in yogurt, but caused phlegm and coughing which was painful. has tolerated no solids since surgery. no f/c no new weakness or numbness. afebrile - Physicial Exam PE: 04/03/19 12:04 awake alert lungs clear bilat ,heart rrr no mrg. neck color in place, lateral incision cdi. . upper ext 5/5 sensation intact. lower ext intact 5/5 strenght, sensatio intact. abd soft nt nd ext wwp. no edema. skin warma nd dry., incision as stated. - Medical Decision Making 04/03/19 12:06 48 yo male with difficulty swallowing, severe pain following neck surgery. plan d/w jessica Lopez, would like pt admitted. ct ordered. labs pain control decadron, toradol will give G I propylaxis protonix daily. pt evaluted by dr jessica james in house will admit to hospitalist. pt unable to tolerate PO. given IVF. gonzález require iv pain medication. clarification by pt surgeon [facility], would like to admit pt under his service. 04/03/19 12:33
[2019-04-03] MEDS ORDERED: KETOROLAC TROMETHAMINE 15 MG/ML VIAL IVPUSH ONE (12:05)
[2019-04-03] MEDS ORDERED: PANTOPRAZOLE SODIUM 40 MG VIAL IVPUSH ONE (12:05)
[2019-04-03] MEDS ORDERED: PANTOPRAZOLE SODIUM 40 MG/100 ML BAG IVPB ONE (12:31)
[2019-04-03] MEDS ORDERED: KETOROLAC TROMETHAMINE 15 MG/ML VIAL ONE (12:32)
[2019-04-03 13:03] LABS: BASO % 0.2 % (0-2.0); EOS % 0.1 % (0-4.5); HEMATOCRIT 44.6 % (35.4-49); LYMPH % 4.7 % (8-40); MCH 27.4 pg (25.7-33.7); MCHC 33.5 g/dl (32.0-35.9); MEAN CELL VOLUME 81.7 fl (80-96); MEAN PLT VOLUME 8.1 fl (7.5-11.1); MONO % 2.8 % (3.8-10.2); NEUT % 92.2 % (42.8-82.8); PLATELET COUNT 262 K/MM3 (134-434); RBC 5.46 M/mm3 (4.00-5.60); RDW 13.6 % (11.9-15.9); WHITE BLOOD COUNT 17.3 K/mm3 (4.0-10.0)
--- NOTE | 2019-04-03 13:08 | PN ---
Progress Note (short form) - Note Progress Note: 48M s/p C3-C6 anterior cervical decompression and instrumented fusion POD #3. Pt. sent to ED by our orthopaedic service d/t dysphagia and decreased PO intake. (+) Generalized posterior neck and trapezial muscle pain bilaterally. Pt. continues to report post-operative resolution of bilateral upper & lower extremity radiculopathy (pain, numbness, and tingling). Pt. denies overnight history of headaches, chest pain, shortness of breath, nausea, vomiting, chills, & sweats. (+) Voiding; (+) Flatus; (-) BM. (+) Dysphagia (difficulty now swallowing liquids); (-) Dysphonia. Pt. feeling better after receiving Decadron & Vaium in ED. All labs and vitals reviewed. PE: AAO x 3, NAD. C-Spine: Soft tisues soft. Dressing C/D/I. B/L UE & LE M: Intact, at least 3/5. B/L UE & LE S: C5-T1, L2-S1 2/2. CT C-Spine: Hardware intact, in place w/excellent overall alignment. No evidence of subsidence, loosening, nor kat-prosthetic fracture. Normal pre- vertebral post-surgical change (fluid, air, etc.). 48M s/p C3-C6 anterior cervical decompression and instrumented fusion POD #3. -Admit to our orthopaedic surgery service. -Pain control: toradol x 1, otherwise NO NSAID's. -IVF. -Maintain head of bed 45-60 degrees. -DVT PPx: -Mechanical only: DINESH's, SCD's. -f/u labs. -Incentive spirometry. -PT/OT/Rehab, OOB. -PWB B/L UE: <5lbs. -WBAT B/L LE. -Hard c-collar at all times. -Keep dressing clean & dry. -No heavy lifting (>5 lbs), bending or twisting x 6 months post op. -Liquid diet. -B/L UE & LE NV checks. -Care per medical hospitalist: Dr. Rizo. -f/u speech & swallow evaluation. -Will follow. Terrence Connor MD (Orthopaedic Surgery).
[2019-04-03 13:12] LABS: ALBUMIN 3.9 g/dl (3.4-5.0); BLOOD UREA NITROGEN 20.2 mg/dL (7-18); CALCIUM 8.7 mg/dL (8.5-10.1); CREATININE 0.9 mg/dL (0.55-1.3); POTASSIUM 4.3 mmol/L (3.5-5.1); TOT PROT 7.4 g/dl (6.4-8.2)
[2019-04-03] MEDS ORDERED: HYDROmorphone HCL CARPU-JECT 2 MG/1 ML DISP.SYRIN SQ PRN (13:12)
[2019-04-03] MEDS ORDERED: MORPHINE SULFATE 2 MG/ML VIAL SQ PRN (13:14)
[2019-04-03] MEDS: LACTATED RINGERS SOLUTION 1,000 ML IV SCH ×2 (13:39→21:52)
[2019-04-03 14:26] LABS: ANISOCYTOSIS 1+; MACROCYTOSIS 0; PLATELET ESTIMATE NORMAL
[2019-04-03] MEDS ORDERED: morphine SULFATE 4 MG/ML VIAL ONE (15:10)
[2019-04-03 17:41] VITALS: BMI 28.7
[2019-04-03] MEDS ORDERED: morphine CARPU-JECT 4 MG/1 ML DISP.SYRIN IVPUSH PRN (18:40)
[2019-04-03] MEDS ORDERED: morphine CARPU-JECT 4 MG/1 ML DISP.SYRIN IVPUSH SCH ×3 (18:45)
[2019-04-03] MEDS ORDERED: PNEUMOCOCCAL 23 VACCINE 0.5 ML VIAL IM ONE (18:45)
--- NOTE | 2019-04-03 18:50 | CONSULT ---
Consult Consult Specialty:: IM Reason for Consultation:: medical management - History Source History Provided By: Patient Limitations to Obtaining History: No Limitations - Past Medical History Cardio/Vascular: Yes: HTN, Hyperlipdemia - Alcohol/Substance Use Hx Alcohol Use: Yes (OCCASIONALLY) - Smoking History Smoking history: Never smoked Have you smoked in the past 12 months: No Home Medications - Allergies Allergies/Adverse Reactions: Allergies Allergy/AdvReac Type Severity Reaction Status Date / Time hydrocodone [From Vicodin] AdvReac Severe BAD Verified 04/03/19 08:38 ABDOMINAL PAIN - Home Medications Home Medications: Ambulatory Orders Alprazolam 1 mg PO QID PRN 03/29/19 Amlodipine Besylate [Norvasc -] 5 mg PO DAILY 03/29/19 Atorvastatin Ca [Lipitor] 20 mg PO DAILY 03/29/19 Cyclobenzaprine HCl 10 mg PO TID PRN 03/29/19 Fenofibrate Nanocrystallized [Fenofibrate] 145 mg PO DAILY 03/29/19 Lisinopril 10 mg PO HS 03/29/19 Oxycodone HCl/Acetaminophen [Percocet 5-325 mg Tablet] 1 tab PO Q6H #20 tablet MDD 4 04/02/19 Metoprolol Succinate [Toprol Xl] 50 mg PO DAILY 04/03/19 Family Disease History - Family Disease History Family History: Unremarkable Review of Systems - Review of Systems Constitutional: reports: Loss of Appetite, Weakness Eyes: reports: No Symptoms HENT: reports: No Symptoms Neck: reports: Decreased ROM, Pain on Movement, Stiffness Cardiovascular: reports: No Symptoms Respiratory: reports: No Symptoms Gastrointestinal: reports: No Symptoms Genitourinary: reports: No Symptoms Musculoskeletal: reports: No Symptoms Integumentary: reports: No Symptoms Neurological: reports: No Symptoms Endocrine: reports: No Symptoms Hematology/Lymphatic: reports: No Symptoms Psychiatric: reports: No Symptoms Pain Intensity: 8 Physical Exam Vital Signs: Vital Signs Temperature 98.3 F 04/03/19 17:36 Pulse Rate 101 H 04/03/19 17:36 Respiratory Rate 20 04/03/19 17:36 Blood Pressure 143/80 04/03/19 17:36 O2 Sat by Pulse Oximetry (%) 92 L 04/03/19 08:38 Constitutional: Yes: Well Nourished, No Distress Eyes: Yes: WNL HENT: Yes: WNL Neck: Yes: Tenderness Cardiovascular: Yes: WNL Respiratory: Yes: WNL Gastrointestinal: Yes: WNL Renal/: Yes: WNL Musculoskeletal: Yes: WNL Extremities: Yes: WNL Edema: No Peripheral Pulses WNL: Yes Integumentary: Yes: WNL Wound/Incision: Yes: Clean/Dry, Well Approximated Neurological: Yes: WNL ...Motor Strength: WNL Psychiatric: Yes: WNL Labs: CBC, BMP 04/03/19 12:19 04/03/19 12:19 Assessment/Plan 48 yo male ho htn hld, chronic pain sp neck discectomy, fusion 03/31/19 post op day #3 here with intractable pain and inability to swallow. IV decadron ordered. clear liquid well tolerated. advanced to dysphagia diet. -pain management. incentive spirometry. on IV morphine. -GI, DVT prophylaxis. -cont ativan for anxiety -GI, ENT, swallow eval pending -HLD: atorvastatin resumed. -HTN, tachycardia: toprol XL 50 mg PO daily resumed. -leucocytosis: likely reactiev, also on decadron. afebrile. CXR negative. -OOB/PT/OT as tolerated -assessment and plan discussed with pt and medical staff phone calls answered throughout the day labs and meds reviewed
[2019-04-03] MEDS ORDERED: MORPHINE SULFATE 2 MG/ML VIAL IVPUSH PRN (18:52)
[2019-04-03] MEDS ORDERED: PNEUMOC 13-VAL CONJ-DIP CRM/PF 0.5 ML DISP.SYRIN IM ONE (19:40)
[2019-04-03] MEDS: ATORVASTATIN CA 20 MG TABLET (FP) PO SCH (22:30)
[2019-04-03] MEDS: DEXAMETHASONE SOD PHOSPHATE 4 MG/1 ML VIAL IVPUSH SCH (22:30)
[2019-04-03] MEDS: MORPHINE SULFATE 2 MG/ML VIAL IVPUSH PRN (23:29)
[2019-04-04] MEDS: LACTATED RINGERS SOLUTION 1,000 ML IV SCH (06:15)
[2019-04-04] MEDS: DEXAMETHASONE SOD PHOSPHATE 4 MG/1 ML VIAL IVPUSH SCH ×3 (06:15→22:58)
[2019-04-04] MEDS: MORPHINE SULFATE 2 MG/ML VIAL IVPUSH PRN ×2 (08:09→15:36)
--- NOTE | 2019-04-04 11:48 | PN ---
Progress Note, Physician Chief Complaint: 48 yo male ho htn hld, chronic pain sp neck discectomy, fusion 03/31/19 came in with intractable pain and inability to swallow. denies chest pain, palpitations, fever, vomiting, diarrhea - Current Medication List Current Medications: Active Medications Atorvastatin Calcium (Lipitor -) 20 mg PO HS [facility] Last Admin: 04/03/19 22:30 Dose: 20 mg Dexamethasone Sodium Phosphate (Decadron Injection -) 4 mg IVPUSH TID@0600,1400 ,2200 [facility] Last Admin: 04/04/19 06:15 Dose: 4 mg Lactated Ringer's (Lactated Ringers Solution) 1,000 mls @ 125 mls/hr IV ASDIR [facility] Last Admin: 04/04/19 06:15 Dose: 125 mls/hr Lorazepam (Ativan Injection -) 1 mg IVPUSH Q6H PRN PRN Reason: MUSCLE SPASMS Metoprolol Succinate (Toprol Xl -) 50 mg PO DAILY [facility] Last Admin: 04/04/19 09:39 Dose: 50 mg Morphine Sulfate (Morphine Sulfate) 1 mg IVPUSH Q6H PRN PRN Reason: PAIN LEVEL 1-5 Morphine Sulfate (Morphine Sulfate) 2 mg IVPUSH Q6H PRN PRN Reason: PAIN LEVEL 6-10 Last Admin: 04/04/19 08:09 Dose: 2 mg - Objective Vital Signs: Vital Signs Temperature 98.1 F 04/04/19 09:00 Pulse Rate 98 H 04/04/19 09:00 Respiratory Rate 20 04/04/19 09:00 Blood Pressure 151/91 04/04/19 09:00 O2 Sat by Pulse Oximetry (%) 93 L 04/04/19 09:00 Constitutional: Yes: Well Nourished, Anxious Eyes: Yes: WNL HENT: Yes: WNL Neck: Yes: Tenderness Cardiovascular: Yes: WNL Respiratory: Yes: WNL Gastrointestinal: Yes: WNL Genitourinary: Yes: WNL Musculoskeletal: Yes: WNL Extremities: Yes: WNL Edema: No Peripheral Pulses WNL: Yes Integumentary: Yes: WNL Neurological: Yes: WNL ...Motor Strength: WNL Psychiatric: Yes: WNL Labs: CBC, BMP 04/03/19 12:19 04/03/19 12:19 Assessment/Plan 48 yo male ho htn hld, chronic pain sp neck discectomy, fusion 03/31/19 came in with intractable pain and inability to swallow. IV decadron started clear liquid well tolerated. advanced to dysphagia diet. Pt says this diet is better tolerated. -pain management. incentive spirometry. on IV morphine for both standing and breakthrough. -GI, DVT prophylaxis. -cont ativan for anxiety -GI, ENT, swallow eval pending -HLD: atorvastatin resumed. -HTN, tachycardia: toprol XL 50 mg PO daily and lisinopril resumed. -leucocytosis: likely reactive to pain. also on decadron. afebrile. CXR negative. -OOB/PT/OT as tolerated -assessment and plan discussed with pt and medical staff phone calls answered throughout the day labs and meds reviewed phone calls answered throughout the day.
[2019-04-04] MEDS: LISINOPRIL 10 MG TABLET (FP) PO SCH (12:37)
--- NOTE | 2019-04-04 17:45 | EKG ---
Test Reason : Blood Pressure : / mmHG Vent. Rate : 095 BPM Atrial Rate : 095 BPM P-R Int : 148 ms QRS Dur : 106 ms QT Int : 376 ms P-R-T Axes : 059 -21 049 degrees QTc Int : 472 ms NORMAL SINUS RHYTHM POSSIBLE LEFT ATRIAL ENLARGEMENT INCOMPLETE RIGHT BUNDLE BRANCH BLOCK LEFT VENTRICULAR HYPERTROPHY POSSIBLE INFERIOR INFARCT , AGE UNDETERMINED ABNORMAL ECG NO PREVIOUS ECGS AVAILABLE Confirmed by HUSEYIN MISHRA MD ([id number]) on 04/04/2019 5:45:00 PM Referred By: Confirmed By:HUSEYIN MISHRA MD
[2019-04-04] MEDS ORDERED: MELATONIN 5 MG TABLETS PO PRN (19:45)
[2019-04-04] MEDS ORDERED: ALPRAZolam 0.25 MG TABLET PO PRN (19:46)
[2019-04-04] MEDS ORDERED: oxyCODONE HCL 5 MG TABLET PO PRN ×2 (19:48→19:49)
[2019-04-04] MEDS: ATORVASTATIN CA 20 MG TABLET (FP) PO SCH (22:57)
[2019-04-05] MEDS: LACTATED RINGERS SOLUTION 1,000 ML IV SCH (03:26)
[2019-04-05] MEDS: DEXAMETHASONE SOD PHOSPHATE 4 MG/1 ML VIAL IVPUSH SCH ×2 (05:41→13:57)
[2019-04-05 07:08] LABS: BASO % 0.2 % (0-2.0); EOS % 0.1 % (0-4.5); HEMATOCRIT 42.8 % (35.4-49); HEMOGLOBIN 14.7 GM/dL (11.7-16.9); LYMPH % 9.2 % (8-40); MCH 28.2 pg (25.7-33.7); MCHC 34.5 g/dl (32.0-35.9); MEAN CELL VOLUME 81.8 fl (80-96); MEAN PLT VOLUME 8.2 fl (7.5-11.1); MONO % 5.5 % (3.8-10.2); PLATELET COUNT 323 K/MM3 (134-434); RBC 5.23 M/mm3 (4.00-5.60); WHITE BLOOD COUNT 14.8 K/mm3 (4.0-10.0)
[2019-04-05 07:31] LABS: BLOOD UREA NITROGEN 19.9 mg/dL (7-18); CALCIUM 9.5 mg/dL (8.5-10.1); CREATININE 0.8 mg/dL (0.55-1.3); POTASSIUM 4.5 mmol/L (3.5-5.1)
--- NOTE | 2019-04-05 09:19 | CON.GI ---
Consult Consult Specialty:: GI Referred by:: DR Connor Reason for Consultation:: Dysphagia , - History of Present Illness Chief Complaint: Acute on chronic difficulty swallowing History of Present Illness: 48 yo male ho htn hld, chronic pain s/p neck discectomy, fusion 03/31/19 post op day #5, come back to ED due to pain and difficulty swallowing. pt reports the difficulty swallowing since he was 10 years old. worsen on solid food and bread , but not on liquid , worsen after the cervical spine surgery surgery pt reports he had EGD/Colonoscopy one month before surgery with Dr Kulwant Hernández that shows Weakness in esophageal muscle, per pt, and internal hemorrhoids. pt reports history of EGD last December after food stuck in his esophagus pt reports history of blood in the past, not any more . pt father has a history of colon cancer. 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 No: AFIB, Murmur Pulmonary: No: Asthma, Bronchitis Gastrointestinal: Yes: Hemorrhoids (history of internal hemorrhoid ). No: Ascites, Constipation - Past Surgical History Additional Surgical History: Left Elbow , left Knee and left ankle ,. s.p cercical spine surgery - Alcohol/Substance Use Hx Alcohol Use: Yes (OCCASIONALLY) - Smoking History Smoking history: Never smoked Have you smoked in the past 12 months: No - Social History Usual Living Arrangement: With Child Occupation: electrition Place of : [facility] History of Recent Travel: No <Shiv Carey - Last Filed: 04/05/19 14:13> Home Medications <Shiv Carey - Last Filed: 04/05/19 14:13> <Monica Julian - Last Filed: 04/05/19 14:20> - Allergies Allergies/Adverse Reactions: Allergies Allergy/AdvReac Type Severity Reaction Status Date / Time hydrocodone [From Vicodin] AdvReac Severe BAD Verified 04/03/19 08:38 ABDOMINAL PAIN tree nut AdvReac Unknown Unverified 04/05/19 10:42 - Home Medications Home Medications: Ambulatory Orders Alprazolam 1 mg PO QID PRN 03/29/19 Amlodipine Besylate [Norvasc -] 5 mg PO DAILY 03/29/19 Atorvastatin Ca [Lipitor] 20 mg PO DAILY 03/29/19 Cyclobenzaprine HCl 10 mg PO TID PRN 03/29/19 Fenofibrate Nanocrystallized [Fenofibrate] 145 mg PO DAILY 03/29/19 Lisinopril 10 mg PO HS 03/29/19 Oxycodone HCl/Acetaminophen [Percocet 5-325 mg Tablet] 1 tab PO Q6H #20 tablet MDD 4 04/02/19 Metoprolol Succinate [Toprol Xl] 50 mg PO DAILY 04/03/19 Family Disease History - Family Disease History Family Disease History: Other: Father (Colon cancer @ 65 ), Mother (emphysema , heavy smoker ) <Shiv Carey - Last Filed: 04/05/19 14:13> Review of Systems - Review of Systems Constitutional: denies: Chills, Diaphoresis, Loss of Appetite, Night Sweats, Unintentional Wgt. Loss Eyes: denies: Recent Change in Vision HENT: reports: Difficult Swallowing (for solid food). denies: Mouth Swelling Neck: reports: Other (s.p cervical disk surgery , collar in place) Cardiovascular: denies: Chest Pain, Edema, Palpitations, Shortness of Breath Respiratory: denies: Cough, Hemoptysis Gastrointestinal: reports: Dysphagia, Rectal Bleeding (in the past internal hemorrhoids). denies: Abdominal Pain, Bloating, Constipation, Diarrhea, Melena , Nausea Genitourinary: reports: No Symptoms Neurological: denies: Change in LOC, Change in Speech, Dizziness, Headache, Numbness, Parasthesia <AurelioShiv - Last Filed: 04/05/19 14:13> Physical Exam-GI Vital Signs: Vital Signs Temperature 98.1 F 04/05/19 06:00 Pulse Rate 74 04/05/19 06:00 Respiratory Rate 18 04/05/19 06:00 Blood Pressure 149/104 H 04/05/19 06:00 O2 Sat by Pulse Oximetry (%) 94 L 04/04/19 21:00 Constitutional: Yes: Well Nourished, No Distress Eyes: Yes: Conjunctiva Clear HENT: Yes: Atraumatic, Normocephalic. No: Hoarseness, Nasal Congestion Neck: Yes: Supple, Other (anterior surgical scar covered with Gauze , collar in place) Cardiovascular: Yes: Regular Rate and Rhythm Respiratory: Yes: Regular, CTA Bilaterally Gastrointestinal Inspection: No: Ascites, Distention ...Auscultate: Yes: Normoactive Bowel Sounds ...Palpate: Yes: Soft. No: Guarding Edema: No Peripheral Pulses WNL: Yes Wound/Incision: Yes: Clean/Dry Neurological: Yes: Alert, Oriented Labs: CBC, BMP 04/05/19 06:30 04/05/19 06:30 <AurelioShiv - Last Filed: 04/05/19 14:13> Vital Signs: Vital Signs Temperature 98.2 F 04/05/19 10:00 Pulse Rate 71 04/05/19 10:00 Respiratory Rate 18 04/05/19 10:00 Blood Pressure 154/94 04/05/19 10:00 O2 Sat by Pulse Oximetry (%) 97 04/05/19 09:00 Labs: CBC, BMP 04/05/19 06:30 04/05/19 06:30 <Monica Julian - Last Filed: 04/05/19 14:20> Imaging - Results X-ray: Report Reviewed <AurelioShiv - Last Filed: 04/05/19 14:13> Problem List - Problems (1) HTN (hypertension) Code(s): I10 - ESSENTIAL (PRIMARY) HYPERTENSION (2) Odynophagia Code(s): R13.10 - DYSPHAGIA, UNSPECIFIED (3) Post-operative pain Code(s): G89.18 - OTHER ACUTE POSTPROCEDURAL PAIN (4) Cervical myelopathy with cervical radiculopathy Code(s): M47.12 - OTHER SPONDYLOSIS WITH MYELOPATHY, CERVICAL REGION <AurelioShiv - Last Filed: 04/05/19 14:13> Assessment/Plan # Acute on chronic dysphasia likley due to pre vertebral edema causing esophageal pressure 48 yo male ho HTN HLD, chronic pain sp neck discectomy, fusion 03/31/19 post op day #5 here with intractable pain and inability to swallow.we were consulted for Odynophagia/dysphagia . pot has been worked up as out pt with Dr Kenneth Blum with EGD/Colonoscopy , the Dysphasia is acute on chronic started at age of 10 per pt , more on solid food and bread but not on Fluids , EGD reports will be obtained from his GI provider Current surgery might cause neck edema with traumatic pressure on the esophagus , steroid course will help with the edema , pt s on lisinopril i dont thinlk he has any kind of angioedema pt EKG shows Left atrial and left ventricle enlargement might benefit from echo for better evaluation as sever left atrial enlargement might participate in dysphasia ( pt does not have any hoarness voice ) follow speech and swallow eval head of bed elevated 45 degree up to one hour after eating dysphasia puree diet follow up as out pt with his GI and we will obtain the reports from his office , and R.O Achalasia EGD reports shows GE junction erythema and mild pressure needed to pass the scope , biopsies was taken and it was negative per pt. <Shiv Carey - Last Filed: 04/05/19 14:13> I have seen and examined the patient. I have discussed the patient with Dr. Carey and agree with his assessment with the following additions. 48M with recent ADCF 03/31 presenting for pain and difficulty swallowing. Has had dysphagia since 10y old he says. Had EGD in February [address] Kulwant Tavares, report personally reviewed, that was normal except for mild resistance to passage of the endoscope through the GEJ without stricture. The dysphagia was solids > liquids predating surgery. After surgery, patient reports he went for too much too soon and has always chewed too little. Now feels at baseline. On exam, well appearing, tolerating pureed diet, in C-collar Labs reviewed and unremarkable CT neck personally reviewed, prevertebral edema noted. Patient was started on steroids. Impression - acute on chronic dysphagia, exacerbated by recent instrumentation Agree with steroids No role for endoscopy at this point - recently had one and edema should improve over time. Patient already feels swallowing at baseline Patient should follow up with Dr. Tavares regarding dysphagia and possible need for motility w/u Would recommend crushing pills or liquid alternative <Monica Julian - Last Filed: 04/05/19 14:20>
[2019-04-05] MEDS: LISINOPRIL 10 MG TABLET (FP) PO SCH (10:21)
--- NOTE | 2019-04-05 14:18 | CONSULT ---
Admitting History and Physical - Primary Care Physician PCP: Hernandez Connor - Admission History of Present Illness: 48 yo male ho htn hld, chronic pain sp neck discectomy, fusion 03/31/19 at [facility], returned to [facility] 04/03 with pain and Dysphagia. He reported coughing when drinking thin water and fear of food getting stuck. IV decadron ordered. Pt with improved swallowing function, now able to tolerate thin water without difficulty. He is fearful about taking wholwe pills and solid food, thinking it will get stuck. Pt with h/o solids getting stuck in his throat, not recently but in the past. Selected Entries 04/04/19 04/04/19 04/04/19 00:00 04:00 09:00 Breakfast Lunch Supper Temperature 98.2 F 98.0 F 98.1 F 04/04/19 04/04/19 04/04/19 09:33 13:10 14:11 Breakfast 100% Lunch 100% Supper Temperature 98.4 F 04/04/19 04/04/19 04/04/19 17:41 22:00 22:15 Breakfast Lunch Supper 50% Temperature 97.9 F 98.1 F 04/05/19 04/05/19 06:00 10:00 Breakfast 100% Lunch Supper Temperature 98.1 F 98.2 F Laboratory Tests 04/03/19 04/05/19 12:19 06:30 WBC 17.3 H 14.8 H Pt tolerating puree/nectar well with good appetite. 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 No: AFIB, Murmur Pulmonary: No: Asthma, Bronchitis Gastrointestinal: Yes: Hemorrhoids (history of internal hemorrhoid ). 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 History - Admission Reason For Visit: SWALLOWING PAINFUL/POSTOPERATIVE PAIN - Diagnostics X-ray: Report Reviewed - General Mental Status: Alert and Oriented, Awake and Alert, Able to Follow Commands, Anxious (fearful) Attention: Intact Ability to Follow Directions: Excellent Head/Neck Control: WFL - Hearing Hearing: Normal Speech Evaluation - Communication Primary Language: CZECH Communication: Yes: Within Normal Limits Oral Expression Ability: Yes: No Impairment - Speech Production Able to Make Needs Known: Yes: WNL Intelligibility: Yes: WNL - Speech Characteristics Voice Loudness: Normal Voice Pitch: Yes: Normal Voice Phonatory-based Quality: Yes: Normal Speech Pattern: Normal Speech Clarity: < 100% Nasal Resonance: Normal Articulation: Yes: Precise - Language/Auditory Comprehension Follows: Yes: 2 Stage Simple Commands - Language/Verbal Expression Able to Respond to Simple Queries: Yes: WNL Able to Communicate Wants and Needs: Yes: WNL Functional Communication Status: Yes: WNL - Memory/Perception rn long term care Memory: Yes: WNL Short Term Memory: Yes: WNL - Swallow Evaluation/Bedside Assessment Current Nutritional Intake: Dysphagia Pureed, [place] Textured Liquids Oral Secretions: Yes: WFL Dentition: Yes: Adequate Facial Symmetry at Rest: Symmetrical Facial Symmetry on Retraction: Symmetrical Facial Movement: Controlled Sensation: Normal Against Resistance Opening: Normal Against Resistance Closing: Normal Pucker Lips: Normal Smile: Normal Lingual Movement: Symmetric Lingual Speed of Movement: Normal Lingual Movement Strgth Against Opposition: Normal Lingual Movement Characteristics: Normal Velopharyngeal Movement: Normal Laryngeal Movement: Able to Palpate Rate of Intake: Slow/Holding Bolus Size: Small Labial Seal: WFL Oral Prep Time: WFL A-P Transit: WFL Pocketing: None Timing of Swallow: WFL Coughing/Throat Clear: No Change in Voice: No Recommendations - Speech Evaluation, Impression/Plan Impression: Improving swallowing function, likely Decadron assisted in reduction of swelling with improved laryngeal swallow function. Pt fearful about trying solids, with h/o food getting stuck in the past. (-) 3oz water test. - Dysphagia Impressions/Plan Dysphagia Impressions: Risk of Aspiration, Ongoing Evaluation *Silent aspiration: cannot be R/O at bedside Dysphagia Treatment Plan: Small Bites, Facilitative Feeding, Safe Rate, 1/2 tsp. at a time, OOB for meals, OOB for 1 h. after meals Recommendations: MBS w Esophagus (can be done as out pt.) - Recommendations Diet Consistency: Dysphagia Pureed, Other (If solids pills continue to be difficult, consider liquid form or meds that can be crushed per family dentist's guidelines.) Liquids: Thin Liquids
[2019-04-05 15:05] VITALS: BP 140/93; PULSE 73; TEMP 97.7
--- NOTE | 2019-04-05 15:36 | DS ---
Physical Examination Vital Signs: Vital Signs Temperature 97.7 F 04/05/19 14:00 Pulse Rate 73 04/05/19 14:00 Respiratory Rate 18 04/05/19 14:00 Blood Pressure 140/93 04/05/19 14:00 O2 Sat by Pulse Oximetry (%) 97 04/05/19 09:00 Constitutional: Yes: Well Nourished, No Distress Eyes: Yes: WNL HENT: Yes: WNL Neck: Yes: WNL, Decreased ROM, Rigid, Tenderness Cardiovascular: Yes: WNL Respiratory: Yes: WNL Gastrointestinal: Yes: WNL Renal/: Yes: WNL Musculoskeletal: Yes: WNL Extremities: Yes: WNL Edema: No Peripheral Pulses WNL: Yes Integumentary: Yes: WNL Wound/Incision: Yes: Clean/Dry Neurological: Yes: WNL ...Motor Strength: WNL Psychiatric: Yes: WNL Labs: CBC, BMP 04/05/19 06:30 04/05/19 06:30 Discharge Summary Reason For Visit: SWALLOWING PAINFUL/POSTOPERATIVE PAIN Current Active Problems HTN (hypertension) (Acute) Odynophagia (Acute) Post-operative pain (Acute) Condition: Stable - Instructions - Home Medications Comprehensive Discharge Medication List: Ambulatory Orders Alprazolam 1 mg PO QID PRN 03/29/19 Amlodipine Besylate [Norvasc -] 5 mg PO DAILY 03/29/19 Atorvastatin Ca [Lipitor] 20 mg PO DAILY 03/29/19 Cyclobenzaprine HCl 10 mg PO TID PRN 03/29/19 Fenofibrate Nanocrystallized [Fenofibrate] 145 mg PO DAILY 03/29/19 Lisinopril 10 mg PO HS 03/29/19 Oxycodone HCl/Acetaminophen [Percocet 5-325 mg Tablet] 1 tab PO Q6H #20 tablet MDD 4 04/02/19 Metoprolol Succinate [Toprol Xl] 50 mg PO DAILY 04/03/19
== END 2019-04-05 16:58 | disposition home or self-care (01) | DRG 948 ==
LOC: JER 08:31 → JERBED 12:22 → J8W 17:07
PROVIDERS: ADMIT Orthopaedic Surgery Adult Reconstructive Orthopaedic Surgery; ATTEND Orthopaedic Surgery Adult Reconstructive Orthopaedic Surgery
DX: G89.18 Other acute postprocedural pain (principal); G95.89 Other specified diseases of spinal cord; M47.12 Other spondylosis with myelopathy, cervical region; M54.12 Radiculopathy, cervical region; R13.19 Other dysphagia; K21.9 Gastro-esophageal reflux disease without esophagitis; E78.00 Pure hypercholesterolemia, unspecified; I10 Essential (primary) hypertension; R13.10 Dysphagia, unspecified; E78.5 Hyperlipidemia, unspecified; D72.829 Elevated white blood cell count, unspecified; K64.8 Other hemorrhoids
CPT/HCPCS: 36415; 71045-TC-FY; 72125-TC; 80048; 80053; 85025; 93005; 93010; 94010; 97116-GP; 99284-25; J1100; J7030